=== PATIENT | male | born 1975 | race Caucasian/White ===

== ENCOUNTER 2019-12-12 02:39 | Emergency (ER) | payer SELFPAY ==
[~2019-12-12] VITALS: Ht 172.7 cm; Wt 81.6 kg
--- NOTE | 2019-12-12 02:52 | NUR ---
Dr. Murphy at bedside for MSE.
[2019-12-12] MEDS ORDERED: LIDOCAINE HCL 2% 20 ML VIAL ONE (02:57)
--- NOTE | 2019-12-12 03:17 | NUR ---
Patient discharged to home in stable condition. Written and verbal after care instructions given. Patient verbalizes understanding of instructions. Stressed follow up or return to ER for worsening s/s. Patient ambulated out of ER with steady gait, no acute signs of distress, VSS, all belongings taken.
[2019-12-12 03:18] VITALS: BP 149/78
== END 2019-12-12 03:18 | disposition home or self-care (01) ==
LOC: ER 02:42
DX: K61.0 Anal abscess (principal)
CPT/HCPCS: 46050; 99282; J3490; A4663